=== PATIENT | female | born 1970 | race African-American/Black ===

== ENCOUNTER 2016-10-06 12:33 | Inpatient (IN) | payer OTHER ==
[~2016-10-06] VITALS: Ht 167.6 cm; Wt 133.3 kg
[~2016-10-06 12:33] MED LIST: ATARAX,VISTARIL25 MG PO; BUSPAR15 MG PO; CHLORDIAZEPOXID25 MG PO; CIPROFLOXACIN500 M1 PO; EFFEXOR XR150 MG PO; LATUDA40 MG PO; LEXAPRO20 MG PO; LIBRIUM25 MG PO; PERCOCET 5/31 TABLET PO; PRISTIQUE PO; QUETIAPINE FUMA50 MG PO; SEROQUEL100 MG PO; TYLENOL WITH C1 EACH PO; VICODIN 5-3001 EACH PO; XANAX1 MG PO; ZOFRAN4 MG PO
[2016-10-06 13:40] LABS: HEMATOCRIT 45.1 % (36.0-46.0); MCH 31.5 PG (29.0-34.0); MCHC 34.6 G/DL (30.0-36.0); MCV 90.9 FL (83-99); MEAN PLAT.VOLUME 10.6 uM^3 (9.5-12.4); PLATELET COUNT 187 K/uL (156-360); RBC DIS.WIDTH-CV 14.6 % (11.8-14.6); RBC DIS.WIDTH-SD 47.4 % (39-53); RED BLOOD COUNT 4.96 M/uL (3.80-5.20); WHITE BLOOD COUNT 5.6 K/uL (4.1-10.2)
[2016-10-06 13:55] LABS: CHLORIDE 106 mEq/L (99-109); SODIUM 139 mEq/L (136-147)
[2016-10-06 13:57] LABS: GLUCOSE 144 mg/dL (70-99)
[2016-10-06 13:58] LABS: ANION GAP 14 MEQ/L (2-14)
[2016-10-06 14:00] LABS: SERUM ETHYL ALCOHOL < 10 mg/dL
[2016-10-06 14:01] LABS: GFR ESTIMATE (CALCULATED) > 59 mL/min/
[2016-10-06 14:02] LABS: UREA NITROGEN (BUN) 7 mg/dL (9-23)
[2016-10-06 14:10] LABS: QUANTITATIVE HCG < 4.0 MIU/ML
[2016-10-06 14:42] LABS: POTASSIUM 4.6 mEq/L (3.7-5.4)
[2016-10-06 15:53] LABS: AMPHETAMINE NEGATIVE (500 ng/mL); BARBITURATES NEGATIVE (200 ng/mL); BENZODIAZEPINES PRESUMPTIVE POSITIVE (150 ng/mL); COCAINE NEGATIVE (150 ng/mL); INTERNAL CONTROLS VALID? YES; METHADONE NEGATIVE (200 ng/mL); METHAMPHETAMINE NEGATIVE (500 ng/mL); OPIATES (MORPHINE) NEGATIVE (100 ng/mL); OXYCODONE NEGATIVE (100 ng/mL); PHENCYCLIDINE NEGATIVE (25 ng/mL); PROPOXYPHENE NEGATIVE (300 ng/mL); THC CANNABINOIDS NEGATIVE (50 ng/mL); TRICYCLIC ANTIDEPRESSANTS NEGATIVE (300 ng/mL)
[2016-10-06 15:54] LABS: ADD MEDTOX COMMENT Y
[2016-10-06] MEDS ORDERED: QUETIAPINE FUM300 MG PO (16:32)
[2016-10-06 16:40] LABS: BENZODIAZEPINES, URINE SCREEN POSITIVE (200 ng/mL)
[2016-10-06 19:58] VITALS: BP 133/84
[2016-10-06 20:23] VITALS: BP 133/84
[2016-10-07 09:15] VITALS: BP 139/74
[2016-10-07 16:17] VITALS: BP 105/60
[2016-10-08 07:59] VITALS: BP 139/79
[2016-10-08 15:13] VITALS: BP 158/81
[2016-10-08 18:48] VITALS: BP 165/83
[2016-10-09 07:44] VITALS: BP 138/87
[2016-10-09 16:19] VITALS: BP 161/95
[2016-10-09 19:01] VITALS: BP 173/93
[2016-10-10 07:16] VITALS: BP 148/92
[2016-10-10 11:47] LABS: POINT-OF-CARE METER ID UU13113830
[2016-10-10 12:26] LABS: TROP-I INTERPRETATION NEGATIVE; TROPONIN-I < 0.01 ng/mL (0.0-0.30)
[2016-10-10 15:53] VITALS: BP 137/66
[2016-10-10 23:31] VITALS: BP 164/93
[2016-10-11 09:17] VITALS: BP 150/93
[2016-10-11 15:54] VITALS: BP 159/89
[2016-10-12 07:30] VITALS: BP 129/76
[2016-10-12] MEDS ORDERED: EFFEXOR37.5 MG PO (09:40)
== END 2016-10-12 13:01 | disposition home or self-care (01) | DRG 885 ==
LOC: EME 12:33 → 1WEST 17:18 → EDOF 17:18 → 1WEST 17:18
PROVIDERS: Hospitalist; Psychiatry & Neurology Psychiatry
DX: F33.3 Major depressive disorder, recurrent, severe with psychotic symptoms (principal); Z68.42 Body mass index [BMI] 45.0-49.9, adult; T42.4X2A Poisoning by benzodiazepines, intentional self-harm, initial encounter; F12.90 Cannabis use, unspecified, uncomplicated; R07.89 Other chest pain; J44.9 Chronic obstructive pulmonary disease, unspecified; I10 Essential (primary) hypertension; D86.9 Sarcoidosis, unspecified; E66.01 Morbid (severe) obesity due to excess calories; F17.210 Nicotine dependence, cigarettes, uncomplicated; Z23 Encounter for immunization
CPT/HCPCS: 80048; 82948; 84484; 84702; 84999; 85027; 90839; 93005; 97150 GO; 97166 GO; 99202; 99281; 99285; G0480; Q0169

== ENCOUNTER 2016-11-03 09:31 | Emergency (ER) | payer OTHER ==
[~2016-11-03] VITALS: Ht 167.6 cm; Wt 131.6 kg
[~2016-11-03 09:31] MED LIST changes: +EFFEXOR37.5 MG PO; +QUETIAPINE FUM300 MG PO
[2016-11-03 10:56] LABS: EOSINOPHIL (%) 0.9 % (0-5); EOSINOPHIL COUNT 0.1 K/uL (0-0.3); HEMATOCRIT 40.6 % (36.0-46.0); IMMATURE GRANULOCYTE (%) 0.2 % (0.0-0.7); IMMATURE GRANULOCYTE COUNT 0.1 K/uL; LYMPHOCYTE COUNT 1.7 K/uL (1.0-2.8); MCH 30.6 PG (29.0-34.0); MCHC 35.2 G/DL (30.0-36.0); MCV 86.9 FL (83-99); MONOCYTE (%) 6.4 % (3-12); MONOCYTE COUNT 0.4 K/uL (0-0.8); NEUTROPHIL (%) 61.6 % (45-76); NEUTROPHIL COUNT 3.5 K/uL (1.8-6.4); PLATELET COUNT 239 K/uL (156-360); RBC DIS.WIDTH-CV 13.6 % (11.8-14.6); RBC DIS.WIDTH-SD 42.4 % (39-53); RED BLOOD COUNT 4.67 M/uL (3.80-5.20); WHITE BLOOD COUNT 5.6 K/uL (4.1-10.2)
[2016-11-03 11:06] LABS: CHLORIDE 106 mEq/L (99-109); SODIUM 143 mEq/L (136-147)
[2016-11-03 11:08] LABS: GLUCOSE 167 mg/dL (70-99)
[2016-11-03 11:09] LABS: ANION GAP 13 MEQ/L (2-14)
[2016-11-03 11:11] LABS: SERUM ETHYL ALCOHOL < 10 mg/dL
[2016-11-03 11:12] LABS: GFR ESTIMATE (CALCULATED) > 59 mL/min/; UREA NITROGEN (BUN) 5 mg/dL (9-23)
[2016-11-03 16:16] VITALS: BP 112/67
== END 2016-11-03 16:17 ==
LOC: EME 09:31
PROVIDERS: Emergency Medicine
DX: F33.9 Major depressive disorder, recurrent, unspecified (principal); R45.851 Suicidal ideations; J45.909 Unspecified asthma, uncomplicated; J44.9 Chronic obstructive pulmonary disease, unspecified; D86.9 Sarcoidosis, unspecified; F17.200 Nicotine dependence, unspecified, uncomplicated
CPT/HCPCS: 80048; 85025; 90837; 99281; 99285; G0480

== ENCOUNTER 2017-01-29 21:18 | Emergency (ER) | payer OTHER ==
[~2017-01-29] VITALS: Ht 167.6 cm; Wt 128.8 kg
[2017-01-29 22:03] LABS: HEMATOCRIT 44.2 % (36.0-46.0); MCH 30.8 PG (29.0-34.0); MCHC 33.7 G/DL (30.0-36.0); MCV 91.5 FL (83-99); PLATELET COUNT 199 K/uL (156-360); RBC DIS.WIDTH-CV 14.4 % (11.8-14.6); RBC DIS.WIDTH-SD 48.4 % (39-53); RED BLOOD COUNT 4.83 M/uL (3.80-5.20); WHITE BLOOD COUNT 7.2 K/uL (4.1-10.2)
[2017-01-29 22:12] LABS: CHLORIDE 106 mEq/L (99-109); POTASSIUM 3.8 mEq/L (3.7-5.4); SODIUM 142 mEq/L (136-147)
[2017-01-29 22:14] LABS: GLUCOSE 84 mg/dL (70-99)
[2017-01-29 22:15] LABS: ANION GAP 9 MEQ/L (2-14)
[2017-01-29 22:16] LABS: TOTAL BILIRUBIN 0.3 mg/dL (0.0-1.0)
[2017-01-29 22:17] LABS: ALKALINE PHOSPHATASE 97 IU/L (3-129)
[2017-01-29 22:18] LABS: GFR ESTIMATE (CALCULATED) > 59 mL/min/
[2017-01-29 22:19] LABS: UREA NITROGEN (BUN) 9 mg/dL (9-23)
[2017-01-29 22:49] LABS: ADD MIUA? YES; BILIRUBIN NEGATIVE; BLOOD NEGATIVE; COLOR YELLOW ((YELLOW)); GLUCOSE (STRIP) NEGATIVE; KETONES NEGATIVE; LEUKOCYTES NEGATIVE; NITRITE NEGATIVE; PROTEIN (STRIP) 30; SPECIFIC GRAVITY 1.028 (1.000-1.030)
[2017-01-29 22:55] LABS: BACTERIA NONE SEEN /HPF; EPITHELIAL CELLS 2+ /HPF; MUCUS TRACE /LPF; RED BLOOD CELLS 0-5 /HPF (0-5); UCUL ADDED? NO; WHITE BLOOD CELLS 0-5 /HPF (0-5)
[2017-01-29] MEDS ORDERED: NORCO 5/3251 TABLET PO (23:55)
[2017-01-30 00:08] VITALS: BP 159/91
== END 2017-01-30 00:11 | disposition home or self-care (01) ==
LOC: EME 21:18
PROVIDERS: Physician Assistant
DX: R10.30 Lower abdominal pain, unspecified (principal); K21.9 Gastro-esophageal reflux disease without esophagitis; F17.200 Nicotine dependence, unspecified, uncomplicated; J45.909 Unspecified asthma, uncomplicated; F31.9 Bipolar disorder, unspecified; F32.9 Major depressive disorder, single episode, unspecified; J44.9 Chronic obstructive pulmonary disease, unspecified
CPT/HCPCS: 74177; 80053; 81003; 85027; 86900; 86901; 99281; 99285; J3010; J7030